=== PATIENT | male | born 1980 | race Two or more races ===

== ENCOUNTER 2019-01-23 01:03 | Inpatient (IN) | payer MEDICAID ==
[~2019-01-23] VITALS: Ht 167.6 cm; Wt 77.2 kg
[2019-01-23] VITALS (8 sets, daily range): BP systolic 105–136; BP diastolic 62–91
[2019-01-23] MEDS ORDERED: IV D5/0.45 NACL 1,000 ML IV PRN (01:15)
--- NOTE | 2019-01-23 01:20 | NUR ---
ADMISSION NOTE. PATIENT ARRIVED TO [facility] VIA AMBULANCE PRN UNIT [address] FROM [facility]. BEING ADMITTED TO TELEMETRY FOR IRRETRACTABLE NAUSEA VOMITING, DEHYDRATION, AND HYPOKALEMIA. PATIENT REPORTS HAVING PAIN TO ABD 6/10 AND REPORTS FEELING NAUSEAUS PATIENT SEEN DRY HEAVING. PATIENT ORIENTED TO ROOM WITH HELP OF JUAQUIN RAPP PATIENT ONLY SPEAKS [place]. DENIED NEED FOR PROFESSIONAL OFFSET PLATEMAKER. INTERVIEW ASSESSMENT PERFORMED WITH JUAQUIN. NEW ORDERS RECIEVED. ACCUCHECK PERFORMED BS IS 97. WILL CONT TO MONITOR. HR 78 NSR.
[2019-01-23] MEDS ORDERED: MAG HYDROX/AL HYDROX/SIMETH 30 ML UDC PO PRN (01:30)
[2019-01-23] MEDS ORDERED: ZOLPIDEM TARTRATE 5 MG TABLET PO PRN (01:30)
[2019-01-23] MEDS ORDERED: MAGNESIUM HYDROXIDE 30 ML UDC PO PRN (01:30)
[2019-01-23] MEDS ORDERED: Z GUARD REMEDY 2 OZ OINT TP PRN (01:30)
[2019-01-23] MEDS ORDERED: DEXTROSE 50%-WATER 50 ML DISP.SYRIN IV PRN (01:30)
[2019-01-23] MEDS ORDERED: ACETAMINOPHEN 325 MG TABLET PO PRN (01:30)
[2019-01-23 02:07] LABS: BASOPHILS # (AUTO) 0.1 /CMM (0.0-0.2); BASOPHILS % (AUTO) 0.8 % (0.0-2.0); EOSINOPHILS % (AUTO) 1.4 % (0.0-6.0); HEMATOCRIT 41 % (39-51); HEMOGLOBIN 14.2 g/dL (13.5-17.5); LYMPHOCYTES # (AUTO) 1.1 /CMM (0.8-4.8); LYMPHOCYTES % (AUTO) 16.3 % (20.0-44.0); MEAN CORPUSCULAR HGB CONC 35 g/dl (31.0-36.0); MEAN CORPUSCULAR VOLUME 82 fL (80-96); MONOCYTES % (AUTO) 14.1 % (2.0-12.0); NEUTROPHILS # (AUTO) 4.7 /CMM (1.8-8.9); NEUTROPHILS % (AUTO) 67.4 % (43.0-81.0); PLATELET COUNT (AUTO) 185 /CMM (150-450); RED BLOOD CELL COUNT(AUTO) 4.97 MIL/uL (4.5-6.0)
[2019-01-23 02:19] LABS: ALBUMIN 3.1 g/dL (3.4-5.0); BILIRUBIN,TOTAL 0.8 mg/dL (0.2-1.0); CREATININE 1.2 mg/dL (0.6-1.3); MAGNESIUM 2.6 mg/dL (1.8-2.4); PHOSPHORUS 2.7 mg/dL (2.5-4.9); POTASSIUM 3.6 mmol/L (3.5-5.1); TOTAL PROTEIN, SERUM 6.7 g/dL (6.4-8.2)
[2019-01-23] MEDS: ONDANSETRON HCL/PF 4 MG/2 ML VIAL IVP PRN ×2 (02:19→09:36)
[2019-01-23] MEDS: MORPHINE SULFATE INJ 2 MG/ML DISP.SYRIN IV PRN ×4 (02:20→13:10)
[2019-01-23 02:29] LABS: THYROID STIMULATING HORMONE 1.045 uIU/mL (0.358-3.74)
[2019-01-23] MEDS: BLOOD SUGAR DIAGNOSTIC 1 EACH STRIP IN SCH ×4 (06:43→21:09)
--- NOTE | 2019-01-23 06:50 | NUR ---
rn pm closing note. patient seen in bed medicated for pain in abd 01/24 with morphine patient feeling nauseous. reviewed pain managmeent plan and nausea medication plan with patient questions concerns addressed still too early for nausea medicine per orders. denies dizziness. no apparent distress breaths even and unlabored.
[2019-01-23] MEDS ORDERED: PANTOPRAZOLE 40 MG TABLET.DR PO SCH (07:30)
--- NOTE | 2019-01-23 07:30 | NUR ---
HOG DRIVER OPENING NOTE RECEIVED PATIENT IN BED. A/OX3. TOLERATING ROOM AIR. O2 SAT 100%. RESPIRATIONS EVEN AND UNLABORED. DENIES SOB. DENIES Addendum: 01/23/19 at 0806 by TAE BYERS RN CONTINUATION OF NOTE: DENIES PAIN AT THIS TIME. EXTERNAL TELE MONITOR READS NSR WITH HR OF 76. IV ACCESS RIGHT AC RUNNING D51/2NS@75ML/HR.BED IS LOW AND LOCKED. CALL LIGHT WITHIN REACH. NO APPARENT DISTRESS AT THIS TIME. WILL CONTINUE TO MONITOR.
[2019-01-23] MEDS: SUCRALFATE 1 G TABLET PO SCH ×4 (09:13→21:09)
[2019-01-23] MEDS: INSULIN REGULAR, HUMAN 100 UNIT/ML 3 ML VIAL SQ PRN ×3 (09:15→21:28)
[2019-01-23] MEDS: NEXIUM 40 MG VIAL IV SCH ×2 (09:36→21:07)
--- NOTE | 2019-01-23 09:51 | NUR ---
SMALL PIECE CUTTER NOTE MORPHINE 2MG GOT WASTED ACCIDENTALLY TRYING TO WITHDRAW MEDICATION. THE VIAL GOT DISASSEMBLED. WITNESSED BY GUERA WYATT.
[2019-01-23] MEDS: DICYCLOMINE HCL 10 MG CAPSULE PO SCH ×3 (11:58→23:20)
--- NOTE | 2019-01-23 12:00 | NUR ---
PRESSER FIRST NOTE 1200 ACCUCHECK READS BLOOD GLUCOSE LEVEL OF 132. PATIENT REFUSED INSULIN SLIDING SCALE.
[2019-01-23] MEDS: IV D5/0.45 NACL 1,000 ML IV PRN ×2 (15:28→23:27)
--- NOTE | 2019-01-23 18:34 | NUR ---
MS RN CLOSING NOTE PATIENT IS RESTING IN BED. A/O X4. TOLERATING ROOM AIR. RESPIRATIONS EVEN AND UNLABORED. DENIES SOB. DENIES PAIN AT THIS TIME. IN NO APPARENT DISTRESS. ALL NURSING NEEDS MET. BED LOW AND LOCKED. CALL LIGHT WITHIN REACH. WILL ENDORSE TO SPECIAL SERVICES AGENT FOR DASHAWN.
--- NOTE | 2019-01-23 19:15 | NUR ---
Met with patient,he speaks [place] only. States he lives at home with his brother. He is ambulatory and independent with adl's. Has hx of cocaine and alcohol, he is diabetic. States he takes insulin and checks his blood sugar. [facility] he recently moved to the [place] and has no pcp yet. He was advised to f/u with local critical access hospital clinics after discharge for routine pcp care. Addendum: 01/23/19 at 2147 by TA ALMAZAN RN Amended: Links added.
--- NOTE | 2019-01-23 19:15 | NUR ---
MS RN NOTE RECEIVED PT IN STABLE CONDITION A/O X3, CURRENTLY IN BED RESTING. NO SIGNS OF SOB OR DISTRESS, NO C/O PAIN. IV IN R AC #20 WITH IVF INFUSING, TOLERATING WELL. ALL CURRENT NEEDS ATTENDED TO. BED LOW, LOCKED, UPPER RAILS UP AND CALL LIGHT WITHIN REACH. WILL CONT. TO MONITOR.
[2019-01-23] MEDS: HYDROCODONE/APAP 5/325MG 1 EACH TABLET PO PRN (21:22)
--- NOTE | 2019-01-24 01:47 | NUR ---
MS RN NOTE PRN NORCO 5-325MG GIVEN FOR PAIN 5/10 IN EPIGASTRIC AREA. WILL CONT. TO MONITOR.
[2019-01-24] MEDS: DICYCLOMINE HCL 10 MG CAPSULE PO SCH ×2 (05:48→12:14)
[2019-01-24] MEDS: INSULIN REGULAR, HUMAN 100 UNIT/ML 3 ML VIAL SQ PRN ×2 (06:19→12:30)
[2019-01-24] MEDS: BLOOD SUGAR DIAGNOSTIC 1 EACH STRIP IN SCH ×2 (06:30→12:14)
[2019-01-24 06:39] LABS: CALCIUM, SERUM 7.4 mg/dL (8.5-10.1); MAGNESIUM 2.5 mg/dL (1.8-2.4); PHOSPHORUS 2.4 mg/dL (2.5-4.9); POTASSIUM 3.5 mmol/L (3.5-5.1)
[2019-01-24 06:43] LABS: BASOPHILS % (AUTO) 0.2 % (0.0-2.0); EOSINOPHILS % (AUTO) 2.7 % (0.0-6.0); HEMATOCRIT 37 % (39-51); LYMPHOCYTES # (AUTO) 1.9 /CMM (0.8-4.8); LYMPHOCYTES % (AUTO) 32.8 % (20.0-44.0); MEAN CORPUSCULAR HGB CONC 35 g/dl (31.0-36.0); MEAN CORPUSCULAR VOLUME 81 fL (80-96); MONOCYTES # (AUTO) 0.7 /CMM (0.1-1.30); MONOCYTES % (AUTO) 12.6 % (2.0-12.0); NEUTROPHILS % (AUTO) 51.7 % (43.0-81.0); PLATELET COUNT (AUTO) 164 /CMM (150-450); WHITE BLOOD COUNT (AUTO) 5.8 K/uL (4.3-11.0)
--- NOTE | 2019-01-24 07:30 | NUR ---
MS RN OPENING NOTE RECEIVED PATIENT IN BED. AXO X3. TOLERATING ROOM AIR. RESPIRATIONS EVEN AND UNLABORED. DENIES SOB. DENIES PAIN AT THIS TIME. IN NO APPARENT DISTRESS. IV ACCESS RIGHT AC GAUGE 20 RUNNING D51/2NS @125ML/HR. BED IS LOW AND LOCKED. CALL LIGHT WITHIN REACH. WILL CONTINUE TO MONITOR.
--- NOTE | 2019-01-24 07:56 | NUR ---
MS RN NOTE MISC ORDER DATED 01/23/19 FOR " DO NOT USE G-TUBE UNTIL FURTHER NOTICE" ENTERED IN WRONG CHART. ORDER IS DISCONTINUED.
[2019-01-24 08:00] VITALS: BP 111/66
[2019-01-24] MEDS: NEXIUM 40 MG VIAL IV SCH (09:53)
[2019-01-24] MEDS: SUCRALFATE 1 G TABLET PO SCH ×2 (09:53→12:14)
[2019-01-24] MEDS: MORPHINE SULFATE INJ 2 MG/ML DISP.SYRIN IV PRN (09:55)
[2019-01-24] MEDS: HYDROCODONE/APAP 5/325MG 1 EACH TABLET PO PRN (12:27)
--- NOTE | 2019-01-24 14:58 | NUR ---
MS RN NOTE PATIENT LEFT HOSPITAL IN STABLE CONDITION. TAKING PRIVATE CAR. A/O X3. RESPIRATIONS EVEN AND UNLABORED. DENIES SOB. DENIES PAIN AT THIS TIME. IN NO APPARENT DISTRESS. BELONGINGS, PRESCRIPTION AND EXIT CARE GIVEN.
== END 2019-01-24 15:00 | disposition home or self-care (01) | DRG 241 ==
LOC: TELE 01:03 → MED 08:26
PROVIDERS: ADMIT Internal Medicine; ATTEND Internal Medicine
DX: K29.70 Gastritis, unspecified, without bleeding (principal); E11.9 Type 2 diabetes mellitus without complications; K21.9 Gastro-esophageal reflux disease without esophagitis; R79.89 Other specified abnormal findings of blood chemistry; F17.200 Nicotine dependence, unspecified, uncomplicated; F19.11 Other psychoactive substance abuse, in remission
CPT/HCPCS: 36415; 80048-TC; 80053-TC; 80061-TC; 82962-TC; 83735-TC; 84100-TC; 84443-TC; 85025-TC; 87081-TC; G0378; J1815; J2270; J2405; J3490

== ENCOUNTER 2019-03-13 11:59 | Emergency (ER) | payer MEDICAID ==
[~2019-03-13] VITALS: Ht 170.2 cm; Wt 74.8 kg
[2019-03-13] MEDS ORDERED: MORPHINE SULFATE INJ 4 MG/ML DISP.SYRIN ONE ×2 (12:15→13:46)
[2019-03-13] MEDS ORDERED: ONDANSETRON HCL/PF 4 MG/2 ML VIAL ONE ×2 (12:15→13:46)
--- NOTE | 2019-03-13 12:18 | NUR ---
+ pain, with nausea and vomiting noted since 0600 am today
[2019-03-13 12:22] LABS: BASOPHILS % (AUTO) 0.2 % (0.0-2.0); EOSINOPHILS % (AUTO) 0.1 % (0.0-6.0); HEMATOCRIT 43 % (39-51); HEMOGLOBIN 14.7 g/dL (13.5-17.5); LYMPHOCYTES % (AUTO) 12.6 % (20.0-44.0); MEAN CORPUSCULAR HGB CONC 35 g/dl (31.0-36.0); MEAN CORPUSCULAR VOLUME 82 fL (80-96); MONOCYTES # (AUTO) 0.2 /CMM (0.1-1.30); MONOCYTES % (AUTO) 3.1 % (2.0-12.0); NEUTROPHILS # (AUTO) 6.4 /CMM (1.8-8.9); PLATELET COUNT (AUTO) 197 /CMM (150-450); RED BLOOD CELL COUNT(AUTO) 5.15 MIL/uL (4.5-6.0); WHITE BLOOD COUNT (AUTO) 7.7 K/uL (4.3-11.0)
[2019-03-13 12:29] LABS: CALCIUM, SERUM 9.7 mg/dL (8.5-10.1); POTASSIUM 3.6 mmol/L (3.5-5.1)
[2019-03-13] MEDS ORDERED: MORPHINE SULFATE INJ 2 MG/ML DISP.SYRIN IV ONE ×2 (12:30→14:00)
[2019-03-13] MEDS ORDERED: ONDANSETRON HCL/PF 4 MG/2 ML VIAL IVP ONE ×2 (12:30→14:00)
[2019-03-13] MEDS ORDERED: IV NS 0.9% 1,000 ML BAG IV ONE ×2 (12:30→13:30)
[2019-03-13 12:34] LABS: ALBUMIN 4.2 g/dL (3.4-5.0); BILIRUBIN,DIRECT 0.1 mg/dL (0.0-0.2); BILIRUBIN,TOTAL 0.6 mg/dL (0.2-1.0); TOTAL PROTEIN, SERUM 8.4 g/dL (6.4-8.2)
--- NOTE | 2019-03-13 13:49 | NUR ---
additional IV fluids and pain meds given as ordered
--- NOTE | 2019-03-13 14:25 | NUR ---
Patient discharged to home in stable condition. Written and verbal after care instructions given. Patient verbalizes understanding of instruction.IV removed. Catheter intact and site benign. Pressure and 4x4 applied to site. No bleeding noted.
[2019-03-13 14:26] VITALS: BP 128/74
== END 2019-03-13 14:26 | disposition home or self-care (01) ==
LOC: ER 12:00
DX: K29.70 Gastritis, unspecified, without bleeding (principal); R11.2 Nausea with vomiting, unspecified; K21.9 Gastro-esophageal reflux disease without esophagitis; E11.9 Type 2 diabetes mellitus without complications; R00.0 Tachycardia, unspecified
CPT/HCPCS: 36415; 80048; 80076; 83690; 85025; 96361; 96374; 96375; 96376; 99283; J2270 ×2; J2405 ×2; J7030 ×2

== ENCOUNTER 2019-04-19 17:13 | Emergency (ER) | payer MEDICAID ==
[~2019-04-19] VITALS: Ht 172.7 cm; Wt 77.1 kg
--- NOTE | 2019-04-19 17:30 | NUR ---
CAME IN FOR EPIGASTRIC PAIN 03/26 PS W/ N/V/D X 10 DAYS, TO ER BED 9, HOOKED TO SHELLACKER, CHANGED TO HOSPITAL GOWN, NO APPARENT DISTRESS NOTED, AWAITING MD RÍOS
--- NOTE | 2019-04-19 17:46 | NUR ---
DR MAGUIRE AT BEDSIDE
[2019-04-19] MEDS ORDERED: FAMOTIDINE/PF INJ 20 MG/2 ML VIAL IV ONE ×2 (18:00→18:01)
[2019-04-19] MEDS ORDERED: ONDANSETRON HCL/PF 4 MG/2 ML VIAL IVP ONE (18:00)
[2019-04-19] MEDS ORDERED: MORPHINE SULFATE INJ 2 MG/ML DISP.SYRIN IV ONE ×2 (18:00→19:30)
[2019-04-19] MEDS ORDERED: ONDANSETRON HCL/PF 4 MG/2 ML VIAL ONE ×2 (18:00→19:31)
[2019-04-19] MEDS ORDERED: IV NS 0.9% 1,000 ML BAG IV ONE (18:00)
[2019-04-19] MEDS ORDERED: MORPHINE SULFATE INJ 4 MG/ML DISP.SYRIN ONE ×2 (18:01→19:31)
[2019-04-19 18:10] LABS: BASOPHILS % (AUTO) 0.5 % (0.0-2.0); EOSINOPHILS % (AUTO) 0.3 % (0.0-6.0); HEMATOCRIT 42 % (39-51); HEMOGLOBIN 14.1 g/dL (13.5-17.5); LYMPHOCYTES # (AUTO) 1.3 /CMM (0.8-4.8); LYMPHOCYTES % (AUTO) 17.5 % (20.0-44.0); MEAN CORPUSCULAR HGB CONC 34 g/dl (31.0-36.0); MEAN CORPUSCULAR VOLUME 83 fL (80-96); MONOCYTES # (AUTO) 0.5 /CMM (0.1-1.30); MONOCYTES % (AUTO) 7.3 % (2.0-12.0); NEUTROPHILS # (AUTO) 5.4 /CMM (1.8-8.9); NEUTROPHILS % (AUTO) 74.4 % (43.0-81.0); PLATELET COUNT (AUTO) 198 /CMM (150-450); RED BLOOD CELL COUNT(AUTO) 5.06 MIL/uL (4.5-6.0); WHITE BLOOD COUNT (AUTO) 7.3 K/uL (4.3-11.0)
[2019-04-19 18:36] LABS: ALBUMIN 4.2 g/dL (3.4-5.0); BILIRUBIN,DIRECT 0.1 mg/dL (0.0-0.2); BILIRUBIN,TOTAL 0.6 mg/dL (0.2-1.0); CALCIUM, SERUM 9.4 mg/dL (8.5-10.1); CREATININE 1.3 mg/dL (0.6-1.3); POTASSIUM 3.6 mmol/L (3.5-5.1); TOTAL PROTEIN, SERUM 8.2 g/dL (6.4-8.2)
--- NOTE | 2019-04-19 19:00 | NUR ---
BP 171/104 [facility], MADE MD AWARE. NNO.
--- NOTE | 2019-04-19 19:20 | NUR ---
REPORT GIVEN TO CT LYNNE FOR DASHAWN
--- NOTE | 2019-04-19 19:28 | NUR ---
Patient is resting comfortably in bed with eyes closed. Easily aroused.
[2019-04-19] MEDS ORDERED: ONDANSETRON HCL/PF 4 MG/2 ML VIAL IV ONE (19:30)
--- NOTE | 2019-04-19 20:07 | NUR ---
Patient discharged to home in stable condition. Written and verbal after care instructions given. Patient verbalizes understanding of instruction. IV removed. Catheter intact and site benign. Pressure and 4x4 applied to site. No bleeding noted. pt ambulatory with a steady gait.
[2019-04-19 20:08] VITALS: BP 138/96
[2019-04-20] MEDS ORDERED: IV NS 0.9% 250 ML IV ONE (02:30)
[2019-04-20] MEDS ORDERED: CT SWABBABLE VALVE TRANS SET 1 EA INFUS.SET MC ONE (02:30)
[2019-04-20] MEDS ORDERED: IOHEXOL-300 100 ML VIAL IV ONE (02:30)
== END 2019-04-19 20:08 | disposition home or self-care (01) ==
LOC: ER 17:18
DX: R10.13 Epigastric pain (principal); R11.2 Nausea with vomiting, unspecified; E11.9 Type 2 diabetes mellitus without complications; K21.9 Gastro-esophageal reflux disease without esophagitis; F10.10 Alcohol abuse, uncomplicated; Y90.9 Presence of alcohol in blood, level not specified
CPT/HCPCS: 36415; 80048; 80076; 83690; 85025; 96361; 96374; 96375; 96376; 99283; J2270 ×2; J2405 ×2; J3490; J7030 ×2; J7050; Q9967

== ENCOUNTER 2019-04-20 01:56 | Emergency (ER) | payer MEDICAID ==
[~2019-04-20] VITALS: Ht 172.7 cm; Wt 79.4 kg
--- NOTE | 2019-04-20 02:10 | NUR ---
PT BIBSELF. AAOX4. AMBULATORY. PT C/O EPIGASTRIC PAIN 10/10 WITH N/V. PT WAS SEEN AND EVALUATED LAST NIGHT. 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 WILL CONTINUE TO MONITOR. WAITING FOR MD FOR EVAL.
[2019-04-20] MEDS ORDERED: ONDANSETRON HCL/PF 4 MG/2 ML VIAL ONE (02:23)
[2019-04-20] MEDS ORDERED: LIDOCAINE VISCOUS 2% UD 15 ML UDC ONE (02:24)
[2019-04-20] MEDS ORDERED: MAG HYDROX/AL HYDROX/SIMETH 30 ML UDC ONE (02:24)
[2019-04-20] MEDS ORDERED: MAG HYDROX/AL HYDROX/SIMETH 30 ML UDC PO ONE (02:30)
[2019-04-20] MEDS ORDERED: IV NS 0.9% 1,000 ML BAG IV ONE (02:30)
[2019-04-20] MEDS ORDERED: ONDANSETRON HCL/PF 4 MG/2 ML VIAL IVP ONE (02:30)
[2019-04-20 02:37] LABS: BASOPHILS % (AUTO) 0.1 % (0.0-2.0); HEMATOCRIT 41 % (39-51); HEMOGLOBIN 13.6 g/dL (13.5-17.5); LYMPHOCYTES % (AUTO) 14.9 % (20.0-44.0); MEAN CORPUSCULAR HGB CONC 34 g/dl (31.0-36.0); MEAN CORPUSCULAR VOLUME 84 fL (80-96); MONOCYTES # (AUTO) 0.5 /CMM (0.1-1.30); MONOCYTES % (AUTO) 7.3 % (2.0-12.0); NEUTROPHILS # (AUTO) 5.3 /CMM (1.8-8.9); NEUTROPHILS % (AUTO) 77.7 % (43.0-81.0); PLATELET COUNT (AUTO) 175 /CMM (150-450); RED BLOOD CELL COUNT(AUTO) 4.85 MIL/uL (4.5-6.0); WHITE BLOOD COUNT (AUTO) 6.8 K/uL (4.3-11.0)
[2019-04-20 02:44] LABS: CALCIUM, SERUM 8.8 mg/dL (8.5-10.1); CREATININE 1.2 mg/dL (0.6-1.3)
[2019-04-20] MEDS ORDERED: IV NS 0.9% 250 ML IV ONE (03:00)
[2019-04-20] MEDS ORDERED: PROCHLORPERAZINE EDISYLATE 10 MG/2 ML VIAL IVP ONE (03:00)
[2019-04-20] MEDS ORDERED: LIDOCAINE VISCOUS 2% UD 15 ML UDC MM ONE (03:00)
[2019-04-20] MEDS ORDERED: IOHEXOL-300 100 ML VIAL IV ONE (03:00)
[2019-04-20] MEDS ORDERED: CT SWABBABLE VALVE TRANS SET 1 EA INFUS.SET MC ONE (03:00)
--- NOTE | 2019-04-20 03:00 | NUR ---
PT BROUGHT TO CT.
--- NOTE | 2019-04-20 03:10 | NUR ---
PT BROUGHT BACK FROM CT
[2019-04-20] MEDS ORDERED: PROCHLORPERAZINE EDISYLATE 10 MG/2 ML VIAL ONE (03:13)
--- NOTE | 2019-04-20 03:35 | NUR ---
Patient is resting comfortably in bed with eyes closed. Easily aroused. VSS.
[2019-04-20 04:06] VITALS: BP 136/80
--- NOTE | 2019-04-20 04:06 | NUR ---
Patient discharged to home in stable condition. Written and verbal after care instructions given. Patient verbalizes understanding of instruction. IV removed. Catheter intact and site benign. Pressure and 4x4 applied to site. No bleeding noted. PT ambulatory with a steady gait.
== END 2019-04-20 04:07 | disposition home or self-care (01) ==
LOC: ER 01:57
DX: R10.13 Epigastric pain (principal); R11.2 Nausea with vomiting, unspecified; E11.9 Type 2 diabetes mellitus without complications; K21.9 Gastro-esophageal reflux disease without esophagitis; F10.10 Alcohol abuse, uncomplicated; Y90.9 Presence of alcohol in blood, level not specified
CPT/HCPCS: 36415; 74177; 80048; 85025; 96361; 96374; 96375; 99284; J0780; J2405; J7030; J7050; Q9967

== ENCOUNTER 2019-05-09 21:38 | Emergency (ER) | payer MEDICAID ==
[~2019-05-09] VITALS: Ht 172.7 cm; Wt 83.0 kg
--- NOTE | 2019-05-09 22:39 | NUR ---
C/C EPIGASTRIC PAIN AND N/V SINCE 5PM, VOMITTING AT 9PM, ZOFRAN WITH NO RELIEF. VSS, TO ER BED 3 AWAITING MD RÍOS
[2019-05-09] MEDS ORDERED: MAG HYDROX/AL HYDROX/SIMETH 30 ML UDC PO ONE (23:00)
[2019-05-09] MEDS ORDERED: LIDOCAINE VISCOUS 2% UD 15 ML UDC MM ONE (23:00)
[2019-05-09] MEDS ORDERED: LIDOCAINE VISCOUS 2% UD 15 ML UDC ONE (23:04)
[2019-05-09] MEDS ORDERED: MAG HYDROX/AL HYDROX/SIMETH 30 ML UDC ONE (23:04)
[2019-05-09 23:09] LABS: BASOPHILS % (AUTO) 0.3 % (0.0-2.0); EOSINOPHILS % (AUTO) 0.5 % (0.0-6.0); HEMATOCRIT 40 % (39-51); HEMOGLOBIN 13.4 g/dL (13.5-17.5); LYMPHOCYTES # (AUTO) 1.6 /CMM (0.8-4.8); LYMPHOCYTES % (AUTO) 19.1 % (20.0-44.0); MEAN CORPUSCULAR HGB CONC 34 g/dl (31.0-36.0); MEAN CORPUSCULAR VOLUME 82 fL (80-96); MONOCYTES # (AUTO) 0.7 /CMM (0.1-1.30); MONOCYTES % (AUTO) 8.3 % (2.0-12.0); NEUTROPHILS # (AUTO) 5.9 /CMM (1.8-8.9); NEUTROPHILS % (AUTO) 71.8 % (43.0-81.0); PLATELET COUNT (AUTO) 201 /CMM (150-450); RED BLOOD CELL COUNT(AUTO) 4.82 MIL/uL (4.5-6.0); WHITE BLOOD COUNT (AUTO) 8.2 K/uL (4.3-11.0)
[2019-05-09 23:17] LABS: CALCIUM, SERUM 9.5 mg/dL (8.5-10.1); CREATININE 1.1 mg/dL (0.6-1.3); POTASSIUM 3.8 mmol/L (3.5-5.1)
[2019-05-09 23:22] LABS: ALBUMIN 3.7 g/dL (3.4-5.0); BILIRUBIN,DIRECT 0.1 mg/dL (0.0-0.2); BILIRUBIN,TOTAL 0.4 mg/dL (0.2-1.0); TOTAL PROTEIN, SERUM 7.7 g/dL (6.4-8.2)
--- NOTE | 2019-05-10 00:39 | NUR ---
Patient discharged to home in stable condition. Written and verbal after care instructions given. Patient verbalizes understanding of instruction.
[2019-05-10 00:40] VITALS: BP 126/80
== END 2019-05-10 00:40 | disposition home or self-care (01) ==
LOC: ER 21:39
DX: K21.9 Gastro-esophageal reflux disease without esophagitis (principal); R11.0 Nausea; E11.9 Type 2 diabetes mellitus without complications; F10.10 Alcohol abuse, uncomplicated; Y90.9 Presence of alcohol in blood, level not specified
CPT/HCPCS: 36415; 71045; 80048; 80076; 83690; 85025; 99284; A6403

== ENCOUNTER 2019-09-23 15:28 | Emergency (ER) | payer MEDICAID ==
[~2019-09-23] VITALS: Ht 175.3 cm; Wt 77.6 kg
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
[2019-09-23] MEDS ORDERED: CEPHALEXIN MONOHYDRATE 500 MG CAPSULE PO ONE ×2 (15:58→16:00)
[2019-09-23] MEDS ORDERED: IBUPROFEN 600 MG TABLET PO ONE ×2 (15:58→16:00)
[2019-09-23] MEDS ORDERED: TDAP [DIPH/PERTUSSIS/TET] 0.5 ML VIAL IM ONE ×2 (15:58→16:00)
[2019-09-23] MEDS ORDERED: ACETAMINOPHEN ES 500 MG TABLET ONE (15:58)
[2019-09-23] MEDS ORDERED: BACI/NEOM/POLY B OINT PKT 1 UDPKT PACKET TP ONE (16:00)
[2019-09-23] MEDS ORDERED: ACETAMINOPHEN ES 500 MG TABLET PO ONE (16:00)
--- NOTE | 2019-09-23 17:30 | NUR ---
PATIENT CAME BACK FROM CT.
--- NOTE | 2019-09-23 18:13 | NUR ---
PATIENT GIVEN KNEE IMMOBILIZER AND CRUTCHES.
--- NOTE | 2019-09-23 18:30 | NUR ---
Patient ambulatory with a steady gait. Patient discharged to home in stable condition. Written and verbal after care instructions given. Patient verbalizes understanding of instruction.
[2019-09-23 18:31] VITALS: BP 127/76
== END 2019-09-23 18:31 | disposition home or self-care (01) ==
LOC: ER 15:28
DX: S39.012A Strain of muscle, fascia and tendon of lower back, initial encounter (principal); S80.211A Abrasion, right knee, initial encounter; S80.212A Abrasion, left knee, initial encounter; M25.462 Effusion, left knee; K21.9 Gastro-esophageal reflux disease without esophagitis; V29.88XA Motorcycle rider (driver) (passenger) injured in other specified transport accidents, initial encounter; Y93.89 Activity, other specified; Y92.89 Other specified places as the place of occurrence of the external cause; Y99.8 Other external cause status
CPT/HCPCS: 72131-TC; 73564-TC; 73700-TC; 90715

== ENCOUNTER 2019-12-16 13:18 | Emergency (ER) | payer MEDICAID ==
[~2019-12-16] VITALS: Ht 172.7 cm; Wt 72.6 kg
[2019-12-16 13:28] VITALS: BP 107/70
[2019-12-16] MEDS ORDERED: BACITRACIN ZINC OINT PACKET 1 EA PACKET TP ONE (14:00)
--- NOTE | 2019-12-16 14:15 | NUR ---
WOUND CARE PROVIDED.
[2019-12-16] MEDS ORDERED: BACI/NEOM/POLY B OINT PKT 1 UDPKT PACKET ONE (14:33)
== END 2019-12-16 14:35 | disposition home or self-care (01) ==
LOC: ER 13:19
DX: E11.621 Type 2 diabetes mellitus with foot ulcer (principal); L97.521 Non-pressure chronic ulcer of other part of left foot limited to breakdown of skin; G89.29 Other chronic pain; K21.9 Gastro-esophageal reflux disease without esophagitis

== ENCOUNTER 2021-12-25 07:53 | Emergency (ER) | payer MEDICAID ==
[~2021-12-25] VITALS: Ht 175.3 cm; Wt 73.0 kg
--- NOTE | 2021-12-25 08:12 | NUR ---
HEADACHES, NAUSEA X 4 DAYS. VOMITING STARTED TODAY. VITALS ARE WITHIN NORMAL LIMITS. NO RESP DISTRESS NOTED.
[2021-12-25] MEDS ORDERED: KETOROLAC TROMETHAMINE INJ 30 MG/ML VIAL IM ONE (08:30)
[2021-12-25] MEDS ORDERED: ONDANSETRON 4 MG TAB.RAPDIS PO ONE (08:30)
--- NOTE | 2021-12-25 08:31 | NUR ---
RAPID FLU AND RAPIC COVID COLLETCED AND SENT.
[2021-12-25] MEDS ORDERED: KETOROLAC TROMETHAMINE INJ 30 MG/ML VIAL ONE (08:35)
[2021-12-25] MEDS ORDERED: ONDANSETRON 4 MG TAB.RAPDIS ONE (08:35)
[2021-12-25] MEDS ORDERED: GUAIFENESIN/D-METHORPHAN HB 5 ML UDC PO ONE (09:00)
[2021-12-25] MEDS ORDERED: GUAIFENESIN/D-METHORPHAN HB 5 ML UDC ONE (09:02)
[2021-12-25] MEDS ORDERED: ONDA4TAB11 PO (11:14)
[2021-12-25] MEDS ORDERED: IBUP-1957 PO (11:14)
[2021-12-25] MEDS ORDERED: GUAI1TBM19 PO (11:14)
[2021-12-25] MEDS ORDERED: PSEU120T83 PO (11:14)
[2021-12-25 11:28] VITALS: BP 118/67
--- NOTE | 2021-12-25 11:29 | NUR ---
Patient discharged to home in stable condition. Written and verbal after care instructions given. Patient verbalizes understanding of instruction.
== END 2021-12-25 11:29 | disposition home or self-care (01) ==
LOC: ER 07:58
DX: J06.9 Acute upper respiratory infection, unspecified (principal); B97.89 Other viral agents as the cause of diseases classified elsewhere; Z20.822 Contact with and (suspected) exposure to COVID-19; K21.9 Gastro-esophageal reflux disease without esophagitis; E11.9 Type 2 diabetes mellitus without complications
CPT/HCPCS: 87426; 87804; 96372; 99283; C9803; J1885; Q0162